=== PATIENT | female | born 1930 | race Caucasian/White ===

== ENCOUNTER 2019-08-20 08:33 | Emergency (ER) | payer MEDICARE ==
[~2019-08-20] VITALS: Ht 152.4 cm; Wt 53.4 kg
[~2019-08-20 08:33] MED LIST: AMLO5TAB10 PO; ASPI-630 PO; AZIT250T PO; Blood Pressure; CALC600T4 PO; CARV25TA PO; CINN500C2 PO; DOCU-109 PO; Diabetic Med; FLUO40CR TP; GLIM2TAB PO; HYDR-2145 PO; HYDR-2155 PO; LEVO75TA5 PO; LOSA1TAB25 PO; MULT-246 PO; OMEG10005 PO; OMEP20CA10 PO; PRAV40TA2 PO; PRED50TA PO; SITA50TA PO; VIT1TABL32 PO
[2019-08-20] MEDS ORDERED: FAMOTIDINE 20 MG/2 ML VIAL IVP ONE (09:00)
[2019-08-20] MEDS ORDERED: IV NORMAL SALINE 1,000ML 1,000 ML IV ONE (09:00)
--- NOTE | 2019-08-20 09:01 | EKG ---
[address] [address] Test Date: 2019-08-20 Test Time: 08:55:45 Pat Name: JENARO THOMAS Department: Room: Gender: F Manager Urology: SHANICE : 1930 Requested By: ROSEY BREAUX Order Number: [id number] Reading MD: Charles Kellogg MD Measurements Intervals [place] Rate: 53 P: 5 MA: 234 QRS: -26 QRSD: 118 T: 72 QT: 448 QTc: 423 Interpretive Statements SINUS RHYTHM PROLONGED MA INTERVAL LBBB LAD Electronically Signed On 08-25-2019 15:41:41 CDT by Charles Kellogg MD
--- NOTE | 2019-08-20 09:04 | PHYS DOC ---
Past History Past Medical History: Diabetes, High Cholesterol, Heart Disease, Hypertension, Hypothyroid Past Surgical History: No Surgical History Smoking: Non-smoker Alcohol Use: None Drug Use: None Adult General Chief Complaint Chief Complaint: FLANK PAIN HPI HPI 89-year-old female presents with one-day history of right-sided flank pain. Denies fever or chills. Denies dysuria or hematuria. Denies trauma. Denies rash. Review of Systems Review of Systems Constitutional: Denies fever or chills Eyes: Denies redness or eye pain HENT: Denies nasal congestion or sore throat Respiratory: Denies cough or shortness of breath Cardiovascular: Denies chest pain or palpitations GI: Denies abdominal pain, nausea, or vomiting : Denies dysuria or hematuria Musculoskeletal: Reports right flank pain; denies extremity pain Integument: Denies rash or skin lesions Neurologic: Denies headache, focal weakness or sensory changes Complete systems were reviewed and found to be within normal limits, except as documented in this note. Current Medications Current Medications Current Medications Medications (Trade) Dose Ordered Sig/Piotr Start Time Stop Time Status Last Admin Dose Admin Famotidine (Pepcid Vial) 20 mg 1X ONCE 08/20/19 09:00 08/20/19 09:01 DC Ketorolac Tromethamine (Toradol 15mg Vial) 10 mg 1X ONCE 08/20/19 09:15 08/20/19 09:16 Sodium Chloride 1,000 ml @ 1,000 mls/hr 1X ONCE 08/20/19 09:00 08/20/19 09:59 Allergies Allergies Allergies Coded Allergies Type Severity Reaction Last Updated Verified No Known Drug Allergies 08/20/19 No Physical Exam Physical Exam Constitutional: Well developed, well nourished, no acute distress, non-toxic appearance HENT: Normocephalic, atraumatic, oropharynx moist Eyes: Conjunctiva normal, no discharge Neck: Normal range of motion, no tenderness, supple Cardiovascular: Heart rate normal, regular rhythm Lungs & Thorax: Bilateral breath sounds clear to auscultation, no wheezing Abdomen: Soft, no tenderness Skin: Warm, dry, no erythema, no rash Back: No tenderness, right CVA tenderness Extremities: No tenderness, ROM intact, no edema Neurologic: Alert and oriented X 3, no focal deficits noted Psychologic: Affect normal, judgement normal Current Patient Data Vital Signs Vital Signs Date Time Temp Pulse Resp B/P (MAP) Pulse Ox O2 Delivery O2 Flow Rate FiO2 08/20/19 08:35 97.8 54 18 100 Room Air EKG EKG @0855 Sinus bradycardia at 53bpm, NO ST elevation, QRS 118ms, QT/QTc 448/423ms Radiology/Procedures Radiology/Procedures PROCEDURE: CT ABDOMEN PELVIS WO CONTRAST Examination: CT of the abdomen pelvis without contrast HISTORY: History of right flank pain, right upper quadrant pain COMPARISON: 04/28/2014 TECHNIQUE: Axial CT images of the abdomen pelvis were performed without contrast. Coronal and sagittal reformats are performed. Exposure: One or more of the following individualized dose reduction techniques were utilized for this examination: 1. Automated exposure control 2. Adjustment of the mA and/or kV according to patient size 3. Use of iterative reconstruction technique FINDINGS: The bibasilar lungs are clear. No evidence of free air identified in the abdomen. The evaluation of the solid organs is limited due to lack of IV contrast. The evaluation of bowel is limited due to lack of oral contrast. The visualized noncontrasted liver, spleen, adrenals grossly appears unremarkable. Cholecystectomy clips identified. Large hiatal hernia is identified. There is questionable minimal fat stranding identified about the pancreas cystic structure identified in the distal aspect of the pancreas measuring 2.1 cm. The small bowel is nondilated. Feces and gas noted in the colon. Multiple sigmoid colon diverticulosis identified. Urinary bladder is mildly distended. Mild right-sided hydronephrosis and hydroureter identified however the evaluation of the distal ureter is somewhat limited due to bowel loop in this region.Minimal left-sided hydronephrosis and hydroureter. Punctate 2 mm questionable calculus identified in the distal left ureter just proximal to the left uterovesical junction, best visualized on series 2 image 112. Cystic structure identified in the right adnexa measuring 2.9 cm and a cystic structure identified in the left adnexa measuring 2.2 cm could be ovarian cysts or cystic lesions. Moderate to severe degenerative changes thoracolumbar spine. IMPRESSION: 1. Questionable minimal fat stranding identified about the pancreas could be due to motion or mild pancreatitis. Correlate with lab values. 2. Cystic structure identified in the distal aspect of the pancreas measuring 2.1 cm could be pancreatic cyst or cystic neoplasm. Follow-up MRI with MRCP can be considered. 3. Mild right-sided hydronephrosis and hydroureter. The evaluation of the distal right ureter is limited due to bowel loops. Minimal left-sided hydronephrosis and hydroureter. Punctate 2 mm questionable calculus identified in the distal left ureter just proximal to the left uterovesical junction, best visualized on series 2 image 112. 4. Cystic structures identified in the right and left adnexa could be ovarian cysts or cystic lesions. Recommend ultrasound pelvis for further evaluation. 5. Large hiatal hernia. 6. Sigmoid colon diverticulosis. Electronically signed by: Willie Cardoso MD (08/20/2019 10:45 AM) [id number] Course & Med Decision Making Course & Med Decision Making Pertinent Labs and Imaging studies reviewed. (See chart for details) Patient presents with right flank pain which started yesterday. Denies trauma. Labs obtained and posted to chart. UA without signs of infection. CT abdomen/pelvis with findings consistent for obstructing ureteral calculi. Incidental cystic structure noted near pancreas. A copy of CT imaging provided to patient to give to PCP for outpatient follow-up. Patient stable for discharge with outpatient follow-up with PCP/urologist. Discussed findings and plan with patient and family, who acknowledge understanding and agreement. Dragon Disclaimer Dragon Disclaimer This electronic medical record was generated, in whole or in part, using a voice recognition dictation system. Departure Departure: Impression: Primary Impression: Kidney stone Additional Impression: Abnormal CT of the abdomen Disposition: 01 HOME, SELF-CARE Condition: STABLE Referrals: JORDEN SCHULZ MD (PCP) Patient Instructions: Diet for Kidney Stones, Incidental Abnormal Radiological Finding, Kidney Stones, [id number] Additional Instructions: Please give copy of your CT results to your doctor for further evaluation. Scripts Ondansetron (ONDANSETRON ODT) 4 Mg Tab.rapdis 1 TAB PO PRN Q6-8HRS PRN for NAUSEA, #16 TAB Prov: ROSEY BREAUX DO 08/20/19 Tamsulosin Hcl (FLOMAX) 0.4 Mg Cap.er.24h 1 CAP PO DAILY for kidney stone, #10 CAP Prov: ROSEY BREAUX DO 08/20/19 Problem Qualifiers ROSEY BREAUX DO Aug 20, 2019 09:04
[2019-08-20] MEDS ORDERED: KETOROLAC 15 MG/ML VIAL. IVP ONE (09:15)
[2019-08-20 09:29] LABS: BASO # 0.1 x10^3/uL (0.0-0.2); BASO % 1 % (0-3); EOS # 0.1 x10^3/uL (0.0-0.7); EOS % 2 % (0-3); LYMPH # 1.9 x10^3/uL (1.0-4.8); LYMPH % 22 % (24-48); MEAN CORPUSCULAR HEMOGLOBIN 33 pg (25-35); MEAN CORPUSCULAR HGB CONC 34 g/dL (31-37); MEAN CORPUSCULAR VOLUME 96 fL (79-100); MONO # 0.7 x10^3/uL (0.0-1.1); MONO % 8 % (0-9); NEUT # 5.8 x10^3uL (1.8-7.7); NEUT % 67 % (31-73); PLATELET COUNT 253 x10^3/uL (140-400); RED BLOOD COUNT 4.29 x10^6/uL (3.50-5.40); RED CELL DISTRIBUTION WIDTH 13.1 % (11.5-14.5); WHITE BLOOD COUNT 8.6 x10^3/uL (4.0-11.0)
[2019-08-20 09:47] LABS: ALBUMIN 3.2 g/dL (3.4-5.0); ALBUMIN/GLOBULIN RATIO 0.9 (1.0-1.7); CALCIUM 8.8 mg/dL (8.5-10.1); CREATININE 0.7 mg/dL (0.6-1.0); POTASSIUM 4.1 mmol/L (3.5-5.1); TOTAL BILIRUBIN 0.4 mg/dL (0.2-1.0); TOTAL PROTEIN 6.7 g/dL (6.4-8.2)
[2019-08-20 10:32] LABS: BILIRUBIN,URINE NEG (NEG); CLARITY,URINE CLEAR; COLOR,URINE YELLOW; GLUCOSE,URINE NEG (NEG); NITRITE,URINE NEG (NEG); UROBILINOGEN,URINE 0.2 mg/dL (0.2 mg/dL)
[2019-08-20 10:33] LABS: BACTERIA,URINE 0 /HPF (0-FEW); SQUAMOUS EPITHELIAL CELL,UR OCC /LPF; WBC,URINE OCC /HPF (0-4)
--- NOTE | 2019-08-20 10:48 | RAD ---
Examination: CT of the abdomen pelvis without contrast HISTORY: History of right flank pain, right upper quadrant pain COMPARISON: 04/28/2014 TECHNIQUE: Axial CT images of the abdomen pelvis were performed without contrast. Coronal and sagittal reformats are performed. Exposure: One or more of the following individualized dose reduction techniques were utilized for this examination: 1. Automated exposure control 2. Adjustment of the mA and/or kV according to patient size 3. Use of iterative reconstruction technique FINDINGS: The bibasilar lungs are clear. No evidence of free air identified in the abdomen. The evaluation of the solid organs is limited due to lack of IV contrast. The evaluation of bowel is limited due to lack of oral contrast. The visualized noncontrasted liver, spleen, adrenals grossly appears unremarkable. Cholecystectomy clips identified. Large hiatal hernia is identified. There is questionable minimal fat stranding identified about the pancreas cystic structure identified in the distal aspect of the pancreas measuring 2.1 cm. The small bowel is nondilated. Feces and gas noted in the colon. Multiple sigmoid colon diverticulosis identified. Urinary bladder is mildly distended. Mild right-sided hydronephrosis and hydroureter identified however the evaluation of the distal ureter is somewhat limited due to bowel loop in this region.Minimal left-sided hydronephrosis and hydroureter. Punctate 2 mm questionable calculus identified in the distal left ureter just proximal to the left uterovesical junction, best visualized on series 2 image 112. Cystic structure identified in the right adnexa measuring 2.9 cm and a cystic structure identified in the left adnexa measuring 2.2 cm could be ovarian cysts or cystic lesions. Moderate to severe degenerative changes thoracolumbar spine. IMPRESSION: 1. Questionable minimal fat stranding identified about the pancreas could be due to motion or mild pancreatitis. Correlate with lab values. 2. Cystic structure identified in the distal aspect of the pancreas measuring 2.1 cm could be pancreatic cyst or cystic neoplasm. Follow-up MRI with MRCP can be considered. 3. Mild right-sided hydronephrosis and hydroureter. The evaluation of the distal right ureter is limited due to bowel loops. Minimal left-sided hydronephrosis and hydroureter. Punctate 2 mm questionable calculus identified in the distal left ureter just proximal to the left uterovesical junction, best visualized on series 2 image 112. 4. Cystic structures identified in the right and left adnexa could be ovarian cysts or cystic lesions. Recommend ultrasound pelvis for further evaluation. 5. Large hiatal hernia. 6. Sigmoid colon diverticulosis. Electronically signed by: Willie Cardoso MD (08/20/2019 10:45 AM) [id number]
[2019-08-20] MEDS ORDERED: TAMS0.4C97 PO (11:05)
[2019-08-20] MEDS ORDERED: ONDA4TAB12 PO (11:05)
[2019-08-20] MEDS ORDERED: TAMSULOSIN 0.4 MG CAP.ER.24H. PO ONE (11:30)
[2019-08-20 11:33] VITALS: BP 136/60
== END 2019-08-20 11:45 | disposition home or self-care (01) ==
LOC: ER 08:33
DX: N13.2 Hydronephrosis with renal and ureteral calculous obstruction (principal); N13.4 Hydroureter; R93.5 Abnormal findings on diagnostic imaging of other abdominal regions, including retroperitoneum; K44.9 Diaphragmatic hernia without obstruction or gangrene; K57.30 Diverticulosis of large intestine without perforation or abscess without bleeding; E11.9 Type 2 diabetes mellitus without complications; E78.00 Pure hypercholesterolemia, unspecified; I11.9 Hypertensive heart disease without heart failure; E03.9 Hypothyroidism, unspecified
CPT/HCPCS: 36415; 74176; 80053; 81001; 82553; 83605; 83690; 84484; 85025; 85610; 85730; 93005; 96374; 96375; 99285; J1885; J3490; J7030